=== PATIENT | male | born 1950 | race Caucasian/White ===

== ENCOUNTER 2019-01-15 07:03 | Day surgery (SDC) | payer BC, MEDICARE ==
[~2019-01-15] VITALS: Ht 180.3 cm; Wt 95.5 kg
[~2019-01-15 07:03] MED LIST: HYDR-3240 PO; MULT-658 PO; ONDA4TAB13 SL; ROSU20TA PO; VIT1CAPS16 PO
[2019-01-15] MEDS ORDERED: LACTATED RINGERS 1,000 ML IV SCH (07:28)
[2019-01-15 07:43] VITALS: BP 122/82
[2019-01-15] MEDS ORDERED: MIDAZOLAM 1 MG/ML, 2ML ONE (09:46)
[2019-01-15] MEDS ORDERED: KETOROLAC 30 MG/1 ML ONE (09:46)
[2019-01-15] MEDS ORDERED: FENTANYL PF 250 MCG/5ML ONE (09:46)
[2019-01-15] MEDS ORDERED: PHENYLEPHRINE 10 MG/ML ONE (09:46)
[2019-01-15] MEDS ORDERED: CIPROFLOXACIN/PMX 400MG/200ML 200 ML ONE (09:57)
[2019-01-15] MEDS ORDERED: ONDANSETRON 2MG/ML, 2ML ONE (10:01)
[2019-01-15] MEDS ORDERED: PROPOFOL 10 MG/ML, 20ML ONE (10:01)
[2019-01-15] MEDS ORDERED: LIDOCAINE 2% 100MG/5ML SYRINGE ONE (10:01)
[2019-01-15] MEDS ORDERED: DEXAMETHASONE 4 MG/ML, 5ML ONE (10:01)
[2019-01-15] MEDS ORDERED: hydrALAzine 20 MG/ML, 1ML IV PRN ×2 (10:30→12:00)
[2019-01-15] MEDS ORDERED: MEPERIDINE/PF 25MG/0.5ML IVPush PRN ×2 (10:30→12:00)
[2019-01-15] MEDS ORDERED: ACETAMINOPHEN 325 MG TABLET PO PRN ×2 (10:30→12:00)
[2019-01-15] MEDS ORDERED: OXYcodone 5 MG/5 ML ORAL.SOL UDC PO PRN ×2 (10:30→12:00)
[2019-01-15] MEDS ORDERED: FENTANYL PF 100 MCG/2ML IV PRN ×2 (10:30→12:00)
[2019-01-15] MEDS ORDERED: PROMETHAZINE 25 MG/ML, 1ML IV PRN ×2 (10:30→12:00)
[2019-01-15] MEDS ORDERED: HALOPERIDOL 5 MG/ML IV PRN ×2 (10:30→12:00)
[2019-01-15] MEDS ORDERED: HYDROmorphone 2 MG/ML, 1ML IVPush PRN ×2 (10:30→12:00)
[2019-01-15] MEDS ORDERED: MEPERIDINE/PF 50 MG/ML ONE ×2 (11:27→13:08)
[2019-01-15] MEDS ORDERED: OMNIPAQUE 350 MG/ML, 50 ML BOTTLE ONE (11:47)
[2019-01-15] MEDS ORDERED: ONDANSETRON 2MG/ML, 2ML IV PRN (12:00)
[2019-01-15] MEDS ORDERED: HYDROcodone/APAP 5/325 TABLET PO PRN (12:00)
[2019-01-15] MEDS ORDERED: LORazepam 2 MG/ML, 1ML IVPush PRN (12:00)
== END 2019-01-15 14:20 | disposition home or self-care (01) ==
LOC: OUT 07:03 → EDSTATUS 09:30 → OUT 14:20
PROVIDERS: ATTEND Urology
DX: N20.1 Calculus of ureter (principal); N40.0 Benign prostatic hyperplasia without lower urinary tract symptoms; E78.5 Hyperlipidemia, unspecified
CPT/HCPCS: 52356; 74420; 82360; 88300; 93005; C1726; C1758; C1769; C2617; J0744; J1100; J1885; J2175; J2250; J2370; J2405; J2704; J3010; J7120; Q9967